=== PATIENT | female | born 1960 | race Asian ===

== ENCOUNTER 2017-07-20 07:29 | Day surgery (SDC) | payer OTHER ==
[~2017-07-20] VITALS: Ht 165.1 cm; Wt 60.0 kg
[~2017-07-20 07:29] MED LIST: CeFAZolin 1 GM/DEXTROSE 50 ML IV ONE; LORazepam 2 MG/ML VIAL IVP PRN; SODIUM CHLORIDE 0.9% 1,000 ML IV ONE
[2017-07-20] MEDS ORDERED: LEVO25TA9 PO (08:55)
[2017-07-20] MEDS ORDERED: LIOT5 PO (08:55)
[2017-07-20] MEDS ORDERED: LIDOCAINE HCL/PF 1% 30 ML VIAL ONE (09:46)
[2017-07-20] MEDS ORDERED: FLUMAZENIL 0.1 MG/ML 5 ML VIAL IVP ONE (09:48)
[2017-07-20] MEDS ORDERED: MIDAZOLAM HCL 2 MG/2 ML VIAL ONE (09:48)
[2017-07-20] MEDS ORDERED: NALOXONE HCL 0.4 MG/ML VIAL ONE (09:48)
[2017-07-20] MEDS ORDERED: FentaNYL CITRATE-PF 100 MCG/2 ML VIAL ONE (09:48)
[2017-07-20] MEDS ORDERED: FentaNYL CITRATE-PF 100 MCG/2 ML VIAL IVP ONE (10:02)
[2017-07-20] MEDS ORDERED: MIDAZOLAM HCL 2 MG/2 ML VIAL IVP ONE (10:02)
[2017-07-20] MEDS ORDERED: SODIUM CHLORIDE 0.9% 1,000 ML IV SCH (10:42)
[2017-07-20] MEDS ORDERED: OxyCODONE HCL/ACETAMINOPHEN 5-325 MG TABLET PO PRN ×2 (10:45)
[2017-07-20] MEDS ORDERED: HYDROmorphone HCL 2 MG TABLET PO ONE (10:45)
[2017-07-20] MEDS ORDERED: HYDROmorphone 2 MG/ML SYRINGE IVP PRN (10:45)
[2017-07-20] MEDS ORDERED: SODIUM CHLORIDE 0.9% 1,000 ML IV ONE (10:58)
[2017-07-20] MEDS ORDERED: PROMETHAZINE HCL 25 MG TABLET PO ONE (11:00)
[2017-07-20] MEDS ORDERED: HYDROmorphone 2 MG/ML SYRINGE IM ONE (11:00)
[2017-07-20] MEDS ORDERED: PROMETHAZINE HCL 25 MG TABLET ONE (11:01)
[2017-07-20] MEDS ORDERED: HYDROmorphone 2 MG/ML SYRINGE ONE (11:03)
== END 2017-07-20 12:05 | disposition home or self-care (01) ==
LOC: SURGERY 07:29 → EDSTATUS 09:30 → SURGERY 12:05
PROVIDERS: ATTEND Radiology Diagnostic Radiology
DX: C50.911 Malignant neoplasm of unspecified site of right female breast (principal); E03.9 Hypothyroidism, unspecified; Z98.890 Other specified postprocedural states; Z88.8 Allergy status to other drugs, medicaments and biological substances
CPT/HCPCS: 19105; 99152; 99153; C2618; J0690; J1170; J2250; J3010; J3490; J7030; J2310